=== PATIENT | male | born 1960 | race Native Hawaiian/Other Pacific Islander ===

== ENCOUNTER 2018-09-20 10:34 | Outpatient (CLI) | payer OTHER ==
[2018-09-20 10:54] LABS: PLATELET COUNT 246 K/uL (142-355)
[2018-09-20 11:20] LABS: POTASSIUM 4.4 mmol/L (3.6-5.2)
== END 2018-09-20 23:14 | disposition home or self-care (01) ==
LOC: LABW 10:34
PROVIDERS: Physician Assistant
DX: E11.9 Type 2 diabetes mellitus without complications (principal); I10 Essential (primary) hypertension; E78.2 Mixed hyperlipidemia; N40.0 Benign prostatic hyperplasia without lower urinary tract symptoms; E55.9 Vitamin D deficiency, unspecified
CPT/HCPCS: 36415; 80053; 80061; 82306; 83036; 84153; 84439; 84443; 85027